=== PATIENT | female | born 1985 | race Caucasian/White ===

== ENCOUNTER 2023-01-16 20:26 | Emergency (ER) | payer BC ==
[2023-01-16] MEDS ORDERED: Ativan 2 MG/1 ML VIAL IV ONE (20:39)
[2023-01-16] MEDS ORDERED: Zofran 4 MG/2 ML VIAL IV ONE (20:39)
[2023-01-16] MEDS ORDERED: Sodium Chloride 0.9% 1000 ML 1,000 ML IV SCH (20:45)
[2023-01-16] MEDS ORDERED: Zofran 4 MG/2 ML VIAL ONE (20:47)
[2023-01-16] MEDS ORDERED: Sodium Chloride 0.9% 1000 ML 1,000 ML ONE (20:47)
[2023-01-16] MEDS ORDERED: Ativan 2 MG/1 ML VIAL ONE (20:47)
[2023-01-16 20:48] LABS: Absolute Neutrophil Ct (ANC) 7.18 x10^3/uL (1.4-6.9); BASOPHIL % 0.4 % (0.0-0.4); Basophil (Absolute #) 0.05 x10^3/uL (0-0.4); Eosinophil % 0.4 % (0.00-5.0); Eosinophil (Absolute #) 0.05 x10^3/uL (0-0.5); Hematocrit 42.9 % (35-47); Hemoglobin 14.2 g/dL (12.0-16.0); IMMATURE GRAN # 0.05 x10^3u/L (0.00-0.03); IMMATURE GRAN % 0.4 % (0.00-0.4); Lymphocyte (Absolute #) 3.51 x10^3/uL (1.0-4.6); Lymphocytes % 30.3 % (24.0-44.0); Mean Cell Volume 90.1 fL (78-100); Mean Corpuscular Hemoglobin 29.8 pg (26-32); Mean Corpuscular Hgb Concent. 33.1 g/dL (32-36); Mean Platelet Volume 9.6 fL (7.5-11.0); Monocyte (Absolute #) 0.75 x10^3/uL (0.0-1.3); Monocytes % 6.5 % (0.0-12.0); Platelet Count 355 x10^3/uL (150-450); Red Blood Count 4.76 x10^6/uL (4.1-5.4); Red Cell Distribution Width 12.1 % (11.5-14.0); White Blood Count 11.6 x10^3/uL (4.0-10.5)
--- NOTE | 2023-01-16 20:49 | ERPHSYRPT ---
- History of Present Illness Time Seen by Provider: 01/16/23 20:44 Source: patient, EMS Exam Limitations: no limitations Physician History: This is a 37-year-old white female who is brought into the emergency department by paramedics who provided independent history on this patient for sudden onset of seizures and vomiting followed being head injury. Patient has a very large dog and the leash was wrapped around her waist and the dog took off running. Patient went somewhat airborne and then hit her head. She was witnessed to have a seizure followed by vomiting. Patient has no history of seizures. She is on methylphenidate and an antidepressant medication. Patient has no other area of complaints of pain or injury. She denies chest pain. She denies shortness of breath. She denies abdominal pain. She has no pain in any extremity. She has no complaints of back pain. Occurred: just prior to arrival Severity: mild (To moderate) Head Injury Location: global Method of Injury: fell Loss of Consciousness: prolonged (minutes) Associated Symptoms: nausea, vomiting, headaches, seizure, No shortness of breat h, No chest pain Allergies/Adverse Reactions: No Known Drug Allergies Allergy (Verified 01/16/23 20:58) Home Medications: Fluoxetine HCl 40 mg PO DAILY 01/16/23 [History] Methylphenidate HCl [Methylphenidate HCl Cd] 30 mg PO DAILY 01/16/23 [History] Travel Risk - International Travel Have you traveled outside of the country in past 3 weeks: No - Coronavirus Screening Are you exhibiting any of the following symptoms?: No Close contact with a COVID-19 positive Pt in past 14-21 Days: No - Review of Systems Constitutional: No Symptoms Eyes: No Symptoms Ears, Nose, & Throat: No Symptoms Respiratory: No Symptoms Cardiac: No Symptoms Abdominal/Gastrointestinal: No Symptoms Genitourinary Symptoms: No Symptoms Musculoskeletal: No Symptoms Skin: No Symptoms Neurological: Headache, Seizure Psychological: No Symptoms Endocrine: No Symptoms Hematologic/Lymphatic: No Symptoms Immunological/Allergic: No Symptoms All Other Systems: Reviewed and Negative - Past Medical History Pertinent Past Medical History: Yes - Past Surgical History Past Surgical History: Yes - Nursing Vital Signs Nursing Vital Signs: Initial Vital Signs Temperature 97.6 F 01/16/23 20:33 Pulse Rate 107 H 01/16/23 20:33 Respiratory Rate 16 01/16/23 20:33 Blood Pressure 125/87 01/16/23 20:33 O2 Sat by Pulse Oximetry 98 01/16/23 20:33 Pain Scale Pain Intensity 4 - [place] Coma Score Best Eye Response (Go): (4) open spontaneously Best Verbal Response (Go): (5) oriented Best Motor Response (Florence): (6) obeys commands [place] Total: 15 - Physical Exam General Appearance: no apparent distress, alert, anxiety Head Injury: no evidence of injury Eye Exam: bilateral eye: normal inspection, PERRL, EOMI ENT Exam: airway nml, nml ext.inspection, No evidence of ENT injury Neck Exam: supple, trachea midline, full range of motion, normal alignment, normal inspection Cardiovascular/Respiratory Exam: chest non-tender, no respiratory distress Gastrointestinal/Abdominal Exam: soft, non tender, no distention, no mass, no guarding, no ecchymosis, no organomegaly, no pulsatile mass, normal bowel sounds Pelvic Exam: not done Rectal Exam: not done Back Exam: normal inspection, normal range of motion, No CVA tenderness Extremity Exam: non-tender, normal range of motion, normal inspection, normal capillary refill, no calf tenderness, no pedal edema, pelvis stable Mental Status Exam: alert, oriented x 3, 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 Exam: normal hearing, normal speech, PERRL Coordination/Gait Exam: normal finger to nose, normal gait Motor/Sensory Exam: no motor deficit, no sensory deficit Skin Exam: normal color, warm, dry Lymphatic Exam: No adenopathy SpO2 Interpretation: normal O2 Delivery: Room Air - Course Nursing assessment & vital signs reviewed: Yes Ordered Tests: Active Orders 24 hr Category Date Time Status 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 Care 01/16/23 20:39 Active Cath for Specimen-Straight STAT Care 01/16/23 22:53 Active Clean Catch Urine Specimen STAT Care 01/16/23 20:39 Active IV Insertion STAT Care 01/16/23 20:39 Active Pulse Oximetry (ED) STAT Care 01/16/23 20:39 Active CERVICAL SPINE WO CONTRAST [CT] Stat Exams 01/16/23 20:43 Completed HEAD WITHOUT CONTRAST [CT] Stat Exams 01/16/23 20:43 Completed CBC W DIFF Stat Lab 01/16/23 20:40 Completed CMP Stat Lab 01/16/23 20:40 Completed CULTURE,URINE Stat Lab 01/16/23 23:23 Received ETHYL ALCOHOL Stat Lab 01/16/23 20:40 Completed HCG QUALITATIVE, SERUM Stat Lab 01/16/23 20:40 Completed UA W/RFX UR CULTURE Stat Lab 01/16/23 23:23 Completed Urine Triage Profile Stat Lab 01/16/23 23:23 Received Medication Summary Generic Name Dose Route Start Last Admin Trade Name Deshawn PRN Reason Stop Dose Admin Sodium Chloride 1,000 mls @ 100 mls/hr 01/16/23 20:45 01/16/23 20:52 Sodium Chloride 0.9% 1000 Ml IV 02/15/23 20:44 100 mls/hr .Q10H JOEL Administration Discontinued Medications Generic Name Dose Route Start Last Admin Trade Name Deshawn PRN Reason Stop Dose Admin Lorazepam 1 mg 01/16/23 20:39 01/16/23 20:54 Lorazepam 2 Mg/1 Ml 2 Mg Vial IV 01/16/23 20:40 1 mg STAT ONE Administration Lorazepam Confirm 01/16/23 20:47 Lorazepam 2 Mg/1 Ml 2 Mg Vial Administered 01/16/23 20:48 Dose 2 mg .ROUTE .STK-MED ONE Ondansetron HCl 4 mg 01/16/23 20:39 01/16/23 20:53 Ondansetron Hcl 4 Mg/2 Ml Vial IV 01/16/23 20:40 4 mg STAT ONE Administration Ondansetron HCl Confirm 01/16/23 20:47 Ondansetron Hcl 4 Mg/2 Ml Vial Administered 01/16/23 20:48 Dose 4 mg .ROUTE .STK-MED ONE Lab/Rad Data: Laboratory Result Diagrams 01/16/23 20:40 01/16/23 20:40 Laboratory Results 01/16/23 01/16/23 01/16/23 Range/Units 23:23 20:40 20:40 WBC (4.0-10.5) x10^3/uL RBC (4.1-5.4) x10^6/uL Hgb (12.0-16.0) g/dL Hct (35-47) % MCV (78-100) fL MCH (26-32) pg MCHC (32-36) g/dL RDW (11.5-14.0) % Plt Count (150-450) x10^3/uL MPV (7.5-11.0) fL Gran % (36.0-66.0) % Immature Gran % (Auto) (0.00-0.4) % Nucleat RBC Rel Count (0.00-0.1) % Eos # (Auto) (0-0.5) x10^3/uL Immature Gran # (Auto) (0.00-0.03) x10^3u/L Absolute Lymphs (auto) (1.0-4.6) x10^3/uL Absolute Monos (auto) (0.0-1.3) x10^3/uL Absolute Nucleated RBC (0.00-0.01) x10^3u/L Lymphocytes % (24.0-44.0) % Monocytes % (0.0-12.0) % Eosinophils % (0.00-5.0) % Basophils % (0.0-0.4) % Absolute Granulocytes (1.4-6.9) x10^3/uL Basophils # (0-0.4) x10^3/uL Sodium 138 (137-145) mmol/L Potassium 3.9 (3.5-5.1) mmol/L Chloride 102 (98-107) mmol/L Carbon Dioxide 25 (22-30) mmol/L Anion Gap 15.2 H (5-15) MEQ/L BUN 12 (7-17) mg/dL Creatinine 1.00 (0.52-1.04) mg/dL Estimated GFR > 60.0 ML/MIN Glucose 143 H (74-106) mg/dL Calcium 9.2 (8.4-10.2) mg/dL Total Bilirubin 0.60 (0.2-1.3) mg/dL AST 27 (14-36) U/L ALT 21 (0-35) U/L Alkaline Phosphatase 71 (38-126) U/L Serum Total Protein 8.3 H (6.3-8.2) g/dL Albumin 4.8 (3.5-5.0) g/dL Serum HCG, Qual NEGATIVE (NEGATIVE) Urine Color Dark Yellow A (Yellow) Urine Appearance Clear (Clear) Urine pH 6.5 (4.6-8.0) Ur Specific [place] >=1.030 A (1.005-1.030) Urine Protein 30 (Negative) Urine Glucose (UA) Negative (Negative) mg/dL Urine Ketones Trace A (Negative) Urine Blood Negative (Negative) Urine Nitrite Negative (Negative) Urine Bilirubin Negative (Negative) Urine Urobilinogen 1.0 A (0.2) mg/dL Ur Leukocyte Esterase Trace A (Negative) U Hyaline Cast (Auto) NONE SEEN (0-2) /LPF Urine Microscopic RBC 3-5 (0-5) /HPF Urine Microscopic WBC 3-5 (0-5) /HPF Ur Epithelial Cells None Seen (None Seen) /HPF Urine Bacteria None Seen (None Seen) /HPF Urine Culture Reflexed YES (NO) Ethyl Alcohol < 10 (0-10) mg/dL 01/16/23 Range/Units 20:40 WBC 11.6 H (4.0-10.5) x10^3/uL RBC 4.76 (4.1-5.4) x10^6/uL Hgb 14.2 (12.0-16.0) g/dL Hct 42.9 (35-47) % MCV 90.1 (78-100) fL MCH 29.8 (26-32) pg MCHC 33.1 (32-36) g/dL RDW 12.1 (11.5-14.0) % Plt Count 355 (150-450) x10^3/uL MPV 9.6 (7.5-11.0) fL Gran % 62.0 (36.0-66.0) % Immature Gran % (Auto) 0.4 (0.00-0.4) % Nucleat RBC Rel Count 0.0 (0.00-0.1) % Eos # (Auto) 0.05 (0-0.5) x10^3/uL Immature Gran # (Auto) 0.05 H (0.00-0.03) x10^3u/L Absolute Lymphs (auto) 3.51 (1.0-4.6) x10^3/uL Absolute Monos (auto) 0.75 (0.0-1.3) x10^3/uL Absolute Nucleated RBC 0.00 (0.00-0.01) x10^3u/L Lymphocytes % 30.3 (24.0-44.0) % Monocytes % 6.5 (0.0-12.0) % Eosinophils % 0.4 (0.00-5.0) % Basophils % 0.4 (0.0-0.4) % Absolute Granulocytes 7.18 H (1.4-6.9) x10^3/uL Basophils # 0.05 (0-0.4) x10^3/uL Sodium (137-145) mmol/L Potassium (3.5-5.1) mmol/L Chloride (98-107) mmol/L Carbon Dioxide (22-30) mmol/L Anion Gap (5-15) MEQ/L BUN (7-17) mg/dL Creatinine (0.52-1.04) mg/dL Estimated GFR ML/MIN Glucose (74-106) mg/dL Calcium (8.4-10.2) mg/dL Total Bilirubin (0.2-1.3) mg/dL AST (14-36) U/L ALT (0-35) U/L Alkaline Phosphatase (38-126) U/L Serum Total Protein (6.3-8.2) g/dL Albumin (3.5-5.0) g/dL Serum HCG, Qual (NEGATIVE) Urine Color (Yellow) Urine Appearance (Clear) Urine pH (4.6-8.0) Ur Specific [place] (1.005-1.030) Urine Protein (Negative) Urine Glucose (UA) (Negative) mg/dL Urine Ketones (Negative) Urine Blood (Negative) Urine Nitrite (Negative) Urine Bilirubin (Negative) Urine Urobilinogen (0.2) mg/dL Ur Leukocyte Esterase (Negative) U Hyaline Cast (Auto) (0-2) /LPF Urine Microscopic RBC (0-5) /HPF Urine Microscopic WBC (0-5) /HPF Ur Epithelial Cells (None Seen) /HPF Urine Bacteria (None Seen) /HPF Urine Culture Reflexed (NO) Ethyl Alcohol (0-10) mg/dL - Progress Progress: improved, re-examined Progress Note: 01/16/23 22:55 CT scan of the head shows no acute intracranial abnormality. CT scan of cervical spine without contrast shows no acute fracture or subluxation. There is evidence of muscle spasm. This patient's medical issue is 1 of moderate complexity. Level complexity in the work-up performed based on review the patient's past medical history, review of the patient's medication list, review the patient drug allergy list, history present illness and physical findings on examination. The work-up of this patient includes urinalysis, CT scan of the head and CT scan of the cervical spine both without contrast. In addition, we placed an intravenous line and provide the patient with intravenous Zofran and intravenous Ativan, CBC, CMP and test. Counseled pt/family regarding: lab results, diagnosis, need for follow-up, rad results Medical Desision Making - Independent Historian Additional History obtained from: Spouse, Returned Materials Inspector/EMT - Diagnostic Testing Diagnostic test were ordered, analyzed, and reviewed by me: Yes Radiological Interpretation: Reviewed by me, Teleradiologist Report - Risk of complications The pt has a mod risk of morbidity or mortality based on: Need for prescription drug management - Departure Departure Disposition: Home Clinical Impression: Head injury, Seizure, UTI (urinary tract infection) Condition: Stable Critical Care Time: No Referrals: DOCTOR,NO FAMILY [Primary Care Provider] - Follow up/PCP as directed Additional Instructions: Drink plenty of fluids. Take your medication as prescribed. Wake this patient up every 2 hours for the next 10 hours. Return to the emergency department if intractable headache, intractable vomiting, or patient not acting her usual self. Use Tylenol and ibuprofen for headache and pain control. Call your prima care provider on 01/19/2023 for further evaluation management. Prescriptions: Ondansetron ODT 4 MG [Zofran Odt 4 mg] 4 mg PO Q6H PRN PRN #10 tablet PRN Reason: Vomiting Cephalexin Mh 500 mg [Keflex 500 mg] 500 mg PO TID #21 cap
[2023-01-16 21:02] LABS: HCG SERUM TEST NEGATIVE (NEGATIVE)
[2023-01-16 21:04] LABS: ALBUMIN 4.8 g/dL (3.5-5.0); ALKALINE PHOSPHATASE 71 U/L (38-126); ANION GAP 15.2 MEQ/L (5-15); BLOOD UREA NITROGEN 12 mg/dL (7-17); CHLORIDE 102 mmol/L (98-107); Calcium 9.2 mg/dL (8.4-10.2); Carbon Dioxide 25 mmol/L (22-30); EST GLOMERULAR FILTRATION RATE > 60.0 ML/MIN; ETHYL ALCOHOL < 10 mg/dL (0-10); Glucose 143 mg/dL (74-106); Potassium 3.9 mmol/L (3.5-5.1); SGOT/AST 27 U/L (14-36); SGPT/ALT 21 U/L (0-35); SODIUM 138 mmol/L (137-145); Total Protein 8.3 g/dL (6.3-8.2)
[2023-01-16 21:09] VITALS: PULSE 107; RESP 16; TEMP 97.6
--- NOTE | 2023-01-16 22:10 | XRAY ---
CLINICAL HISTORY:Fall with head injury COMPARISON:None. TECHNIQUE:Non-enhanced CT scan of the brain was performed in the axial plane in bony and soft tissue windows with multiplanar reconstructions. FINDINGS: Normal CT attenuation of both cerebral hemispheres with no areas of abnormal attenuation values. No suspicious space-occupying lesions. No intra or extra-axial collections of fresh blood density. Normal size and shape of the ventricles, basal cisterns, and cortical sulci. The basal ganglia, thalamus, and internal capsule appear normal. Brainstem and olivia appear normal. No shift of midline structures. Unremarkable posterior fossa. Largely preserved cranial calvarial bones. Visualized paranasal sinuses appear clear. IMPRESSION: No acute intracranial abnormality. Electronically Signed by: Cabrera Gilmore MD. (01/16/2023 21:10:25 [employer] ARCHITECT)
--- NOTE | 2023-01-16 22:23 | XRAY ---
CLINICAL HISTORY:Fall with head injury COMPARISON:None. TECHNIQUE:Non-enhanced CT scan of the cervical spine in the axial plane with multiplanar reconstructions. FINDINGS: Reduced cervical lordotic curve suggestive of muscle spasm. Normal CT appearance of the craniocervical junction. No signs of spinal instability. Unremarkable facet joints and spinous processes. No vertebral wedging or collapse. Preserved spinal canal with no retropulsed fragments. The cervical disks are of normal height. No significant disc protrusion. No suspicious focal bony lesions. No paraspinal masses or collections. IMPRESSION: 1. Unremarkable CT Cervical spine [apart from neck muscle spasm]. 2. No related significant spinal injury. Electronically Signed by: Cabrera Gilmore MD. (01/16/2023 21:21:22 [employer]OR[employer] COMMANDING OFFICER)
[2023-01-16 23:35] VITALS: BP 120/82; O2SAT 97
[2023-01-16 23:36] LABS: Appearance Clear (Clear); Bacteria None Seen /HPF (None Seen); Bilirubin Negative (Negative); Blood Negative (Negative); Epithelial Cells None Seen /HPF (None Seen); Glucose, Urine Negative (Negative); Hyaline Casts NONE SEEN /LPF (0-2); Ketones Trace (Negative); Leukocyte Esterase Trace (Negative); Nitrite Negative (Negative); Ph 6.5 (4.6-8.0); Protein,Urine Dip 30 (Negative); Specific Gravity >=1.030 (1.005-1.030)
[2023-01-16 23:37] LABS: ADD URINE CULTURE? YES (NO)
[2023-01-17] LABS: Amphetamine,Urine NEGATIVE (NEGATIVE); Barbiturate,Urine NEGATIVE (NEGATIVE); Benzodiazepine,Urine NEGATIVE (NEGATIVE); Cocaine,Urine NEGATIVE (NEGATIVE); Methadone,Urine NEGATIVE (NEGATIVE); Opiate,Urine NEGATIVE (NEGATIVE); PCP,Urine NEGATIVE (NEGATIVE); THC,Urine NEGATIVE (NEGATIVE)
[2023-01-17] MEDS ORDERED: KEFLEX 500 MG PO ONE (00:10)
[2023-01-17] MEDS ORDERED: KEFLEX 500 MG ONE (00:14)
[2023-01-17] MEDS ORDERED: ANTIVERT 25 MG PO ONE (00:17)
[2023-01-17] MEDS ORDERED: ANTIVERT 25 MG ONE (00:27)
== END 2023-01-17 02:40 | disposition home or self-care (01) ==
LOC: ED 20:26
DX: S09.90XA Unspecified injury of head, initial encounter (principal); W01.10XA Fall on same level from slipping, tripping and stumbling with subsequent striking against unspecified object, initial encounter; R56.9 Unspecified convulsions; N39.0 Urinary tract infection, site not specified; Z79.899 Other long term (current) drug therapy
CPT/HCPCS: 36000; 36415; 70450; 72125; 80053; 80307; 81001; 82077; 84703; 85025; 87086; 93041; 94760; 96374; 96375; 99284; P9612; J2060; J2405; A9270-GY